=== PATIENT | female | born 1945 | race Caucasian/White ===

== ENCOUNTER 2016-04-29 22:17 | Inpatient (IN) | payer OTHER ==
[~2016-04-29] VITALS: Ht 152.4 cm; Wt 83.3 kg
[~2016-04-29 22:17] MED LIST: PROTONIX40 MG PO; SYNTHROID
[2016-04-29 23:06] LABS: HEMATOCRIT 40.9 % (36.0-46.0); MCH 29.4 PG (29.0-34.0); MCHC 33.3 G/DL (30.0-36.0); MCV 88.5 FL (83-99); MEAN PLAT.VOLUME 10.7 uM^3 (9.5-12.4); PLATELET COUNT 281 K/uL (156-360); RBC DIS.WIDTH-SD 41.4 % (39-53); RED BLOOD COUNT 4.62 M/uL (3.80-5.20); WHITE BLOOD COUNT 11.3 K/uL (4.1-10.2)
[2016-04-29 23:11] LABS: CHLORIDE 108 mEq/L (99-109); POTASSIUM 4.4 mEq/L (3.7-5.4); SODIUM 142 mEq/L (136-147)
[2016-04-29 23:12] LABS: GLUCOSE 110 mg/dL (70-99)
[2016-04-29 23:14] LABS: ANION GAP 10 MEQ/L (2-14)
[2016-04-29 23:16] LABS: GFR ESTIMATE (CALCULATED) 52 mL/min/
[2016-04-29 23:17] LABS: UREA NITROGEN (BUN) 19 mg/dL (9-23)
[2016-04-29 23:22] LABS: TROP-I INTERPRETATION NEGATIVE; TROPONIN-I < 0.01 ng/mL (0.0-0.30)
[2016-04-29] MEDS ORDERED: SYNTHROID100 MCG PO (23:46)
[2016-04-29] MEDS ORDERED: VITAMIN D31000 UNI2 PO (23:47)
[2016-04-29] MEDS ORDERED: SERTRALINE HCL50 MG PO (23:47)
[2016-04-29] MEDS ORDERED: ASMANEX TW200 MICRO1 IH (23:47)
[2016-04-29] MEDS ORDERED: VENTOLIN HFA18 GM IH (23:47)
[2016-04-29] MEDS ORDERED: NEXIUM 24HR20 MG PO (23:47)
[2016-04-29] MEDS ORDERED: LOSARTAN POTASS25 MG PO (23:47)
[2016-04-29] MEDS ORDERED: ONE-A-DAY ESSE1 EAC1 PO (23:47)
[2016-04-30 00:03] LABS: INFLUENZA A VIRAL ANTIGEN NEGATIVE; INFLUENZA B VIRAL ANTIGEN NEGATIVE
[2016-04-30 04:31] VITALS: BP 180/78
[2016-04-30 05:58] LABS: EOSINOPHIL (%) 2.3 % (0-5); EOSINOPHIL COUNT 0.2 K/uL (0-0.3); IMMATURE GRANULOCYTE (%) 0.3 % (0.0-0.7); LYMPHOCYTE COUNT 2.3 K/uL (1.0-2.8); MCH 29.6 PG (29.0-34.0); MCHC 32.9 G/DL (30.0-36.0); MEAN PLAT.VOLUME 11.4 uM^3 (9.5-12.4); MONOCYTE COUNT 0.8 K/uL (0-0.8); NEUTROPHIL (%) 64.8 % (45-76); PLATELET COUNT 272 K/uL (156-360); RBC DIS.WIDTH-CV 13.2 % (11.8-14.6); RBC DIS.WIDTH-SD 43.7 % (39-53); RED BLOOD COUNT 4.22 M/uL (3.80-5.20); WHITE BLOOD COUNT 9.3 K/uL (4.1-10.2)
[2016-04-30 06:23] LABS: ANION GAP 10 MEQ/L (2-14); CHLORIDE 107 MEQ/L (99-109); GFR ESTIMATE (CALCULATED) > 59 mL/min/; GLUCOSE 96 mg/dL (70-99); POTASSIUM 4.3 MEQ/L (3.7-5.4); SAMPLE HEMOLYSIS CHECK 0; SAMPLE ICTERIC CHECK 0; SAMPLE LIPEMIA CHECK 0; SODIUM 139 MEQ/L (136-147); UREA NITROGEN (BUN) 15 mg/dL (9-23)
[2016-04-30 07:41] VITALS: BP 147/72
[2016-04-30 15:29] VITALS: BP 139/67
[2016-04-30 19:28] VITALS: BP 139/81
[2016-04-30 23:36] VITALS: BP 142/65
[2016-05-01 03:55] VITALS: BP 135/74
[2016-05-01 07:49] VITALS: BP 142/67
[2016-05-01] MEDS ORDERED: LEVAQUIN500 MG PO (09:23)
[2016-05-01] MEDS ORDERED: AMLODIPINE BESYL5 MG PO (09:23)
== END 2016-05-01 10:51 | disposition home or self-care (01) | DRG 190 ==
LOC: EME 22:17 → EDOF 04-30 02:57 → 3EAST 04-30 02:57
PROVIDERS: Emergency Medicine; Internal Medicine
DX: J44.0 Chronic obstructive pulmonary disease with (acute) lower respiratory infection (principal); J18.9 Pneumonia, unspecified organism; K21.9 Gastro-esophageal reflux disease without esophagitis; F33.42 Major depressive disorder, recurrent, in full remission; E03.8 Other specified hypothyroidism; J45.909 Unspecified asthma, uncomplicated; F17.200 Nicotine dependence, unspecified, uncomplicated; I10 Essential (primary) hypertension; E66.9 Obesity, unspecified; J45.901 Unspecified asthma with (acute) exacerbation; Z68.35 Body mass index [BMI] 35.0-35.9, adult
CPT/HCPCS: 71020; 80048; 83605; 84484; 85025; 85027; 87040; 87070; 87205; 87449; 87502; 93005; 94640; 94640 76; 99202; 99281; 99285; J1644; J1956; J7030